=== PATIENT | female | born 1975 | race Caucasian/White ===

== ENCOUNTER 2021-04-24 10:59 | Outpatient (CLI) | payer OTHER ==
--- NOTE | 2021-04-30 08:04 | Mammography Report ---
BILATERAL DIGITAL SCREENING MAMMOGRAM 3D/2D: 04/24/2021 CLINICAL: Routine screening. Comparison is made to exams dated: 04/06/2011 mammogram - [facility], 09/01/2010 mammogram, and 11/21/2009 mammogram - [facility]. The tissue of both breasts is heterogeneously de nse. This may lower the sensitivity of mammography. There are benign calcifications in both breasts. No significant masses, calcifications, or other findings are seen in either breast. There has been no significant interval change. IMPRESSION: BENIGN There is no mammographic evidence of malignancy. A 1 year screening mammogram is recommended. This exam was interpreted at Station ID: [id number]. NOTE: For mammograms, a report in lay terms will be sent to the patient. Approximately 15% of breast malignancies will not be visualized mammographically. In the management of a palpable breast mass, a negative mammogram must not discourage biopsy of a clinically suspicious lesion. Electronically Signed By: Lázaro delarosa/penrad:04/29/2021 08:05:03 ACR BI-RADS Category 2: Benign Finding(s) 3342F PARENCHYMAL PATTERN: (D) - The breast(s) demonstrate(s) heterogeneously dense fibroglandular parenchy ma. BI-RADS CATEGORY: (2) - 2 RECOMMENDATION: (ANNUAL) - Recommend routine annual screening mammography. [id number] 1 year screening LATERALITY: (B)
== END 2021-04-24 11:00 | disposition home or self-care (01) ==
LOC: DI 10:59 → MERGE 11:30
DX: Z12.31 Encounter for screening mammogram for malignant neoplasm of breast (principal)

== ENCOUNTER 2021-09-19 07:00 | Outpatient (CLI) | payer OTHER | END 2021-09-19 23:59 | disposition home or self-care (01) | LOC: LAB.WCP 07:00 | PROVIDERS: ATTEND Physician Assistant Medical | DX: J06.9 Acute upper respiratory infection, unspecified (principal); Z20.822 Contact with and (suspected) exposure to COVID-19 ==

== ENCOUNTER → 2022-08-19 | Outpatient (CLI) | payer OTHER ==
--- NOTE | 2022-08-19 17:20 | XRAY Report ---
PROCEDURE: Finger(s) LT INDICATIONS: L THUMB PX TECHNIQUE: AP hand, 2 views of the first finger(s) acquired. COMPARISON: None FINDINGS: Bones: No fractures or dislocations. First interphalangeal joint osteoarthritic changes are seen wi th joint space narrowing and subchondral sclerosis. Mild first CMC joint osteoarthritic changes also noted. Small calcification over dorsal aspect of first interphalangeal joint is noted which may repre sent remote avulsion injury. No suspicious bony lesions. Soft tissues: No suspicious soft tissue calcifications. IMPRESSION: No acute left thumb fracture or dislocation. 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 Possible old avulsion injury involving dorsal aspect of first interphal angeal joint. Reviewed by: Ethan Calderon MD on 08/19/2022 5:19 PM PST Approved by: Ethan Calderon MD on 08/19/2022 5:19 PM PST Station ID: [id number]
== END ==
LOC: DI.N 07:00
PROVIDERS: ATTEND Physician Assistant
DX: M18.12 Unilateral primary osteoarthritis of first carpometacarpal joint, left hand (principal); M19.042 Primary osteoarthritis, left hand

== ENCOUNTER 2022-12-31 07:56 | Outpatient (CLI) | payer OTHER ==
--- NOTE | 2022-12-31 12:13 | Ultrasound Report ---
LIMITED ULTRASOUND OF RIGHT BREAST: 12/31/2022 CLINICAL: Focal right breast pain. Comparison is made to exams dated: 12/31/2022 mammogram, 04/24/2021 mammogram, and 04/24/2021 mammogram - [facility]. Color flow and real-time ultrasound of the right breast 7 o'clock region were performed. Brock scale images of the real-time examination were reviewed. No significant abnormalities were seen sonographically in the right breast in the region of pain. IMPRESSION: NEGATIVE There is no sonographic evidence of malignancy. Exam findings were conveyed to the patient. Patient is advised to monitor for significant change. Cli nical follow-up as needed. A 1 year screening mammogram is recommended. This exam was interpreted at Station ID: [id number]. Electronically Signed By: Lázaro Ivory M.D. slc/:12/31/2022 09:37:07 Ultrasound BI-RADS: 1 Negative BI-RADS CATEGORY: (1) - 1 Mammogram [id number] 1 year screening LATERALITY: (B)
--- NOTE | 2022-12-31 12:13 | Mammography Report ---
BILATERAL DIGITAL DIAGNOSTIC MAMMOGRAM 3D/2D: 12/31/2022 CLINICAL: Intermittent pain in bilateral breasts. Comparison is made to exams dated: 04/24/2021 mammogram, 04/24/2021 mammogram - [facility], and 04/06/2011 mammogram - [facility]. Both breasts are heterogeneously dense, which may obscure small masses (category c / 51-75% glandular tissue). Long-term stable grouped calcifications in the left breast. No significant masses, calcifications, or other findings are seen in either breast. IMPRESSION: INCOMPLETE: NEEDS ADDITIONAL IMAGING EVALUATION No mammographic evidence of malignancy. A targeted ultrasound is recommended and will immediately follow. Based on the Tyrer Cuzick model (a risk assessment model) the patients lifetime risk is 15.1% and he r 10 year risk is 2.8%. According to the ACR, ACS, and NCCN guidelines, an annual breast MRI exam gwendolyn ng with mammogram is recommended if the patients lifetime risk is 20% or greater. This exam was interpreted at Station ID: [id number]. NOTE: For mammograms, a report in lay terms will be sent to the patient. Approximately 15% of breast malignancies will not be visualized mammographically. In the management of a palpable breast mass, a negative mammogram must not discourage biopsy of a clinically suspicious lesion. Electronically Signed By: Lázaro Ivory M.D. slc/:12/31/2022 08:38:27 ACR BI-RADS Category 0: Incomplete 3340F PARENCHYMAL PATTERN: (D) - The breast(s) demonstrate(s) heterogeneously dense fibroglandular parkatherine mcintyre. BI-RADS CATEGORY: (0) - 0 Ultrasound [id number] Immediate follow-up LATERALITY: (B)
--- NOTE | 2022-12-31 12:13 | Ultrasound Report ---
LIMITED ULTRASOUND OF LEFT BREAST: 12/31/2022 CLINICAL: Focal left breast pain. Comparison is made to exams dated: 12/31/2022 ultrasound, 12/31/2022 mammogram, 04/24/2021 mammogram, a nd 04/24/2021 mammogram - [facility]. Color flow and real-time ultrasound of the left breast 3 o'clock region were performed. Brock scale i mages of the real-time examination were reviewed. There is a 1.2 cm x 0.9 cm x 0.4 cm cluster of oval cysts with a septated internal wall in the left b reast at 3 o'clock middle depth 4 cm from the nipple. This correlates to the reported pain. Color f low imaging demonstrates that there is no vascularity present. IMPRESSION: PROBABLY BENIGN The 1.2 cm cluster of oval cysts in the left breast is probably benign. A follow-up ultrasound in 6 months is recommended to demonstrate stability. Exam findings were conveyed to the patient. Patient is advised to monitor for significant change. This exam was interpreted at Station ID: [id number]. Electronically Signed By: Lázaro Ivory M.D. slc/:12/31/2022 09:53:17 Ultrasound BI-RADS: 3 Probably benign BI-RADS CATEGORY: (3) - 3 Ultrasound [id number] 6 month follow-up LATERALITY: (B)
== END 2022-12-31 07:57 | disposition home or self-care (01) ==
LOC: DI 07:56
PROVIDERS: ATTEND Physician Assistant Medical
DX: N64.4 Mastodynia (principal); N60.12 Diffuse cystic mastopathy of left breast

== ENCOUNTER 2023-02-06 08:00 | Outpatient (CLI) | payer OTHER ==
[2023-02-06 18:46] LABS: HCT - HEMATOCRIT 43.8 % (37.0-47.0); MEAN CORPUSCULAR VOLUME 93.8 fL (81.0-99.0); RED BLOOD COUNT 4.67 10^6/uL (4.20-5.40); RED CELL DISTRIBUTION WIDTH 13.4 % (12.0-15.0); WHITE BLOOD COUNT 5.3 x10^3/uL (4.8-10.8)
== END 2023-02-06 23:59 | disposition home or self-care (01) ==
LOC: LAB.N 08:00
PROVIDERS: ATTEND Physician Assistant Medical
DX: R20.2 Paresthesia of skin (principal)
CPT/HCPCS: 36415; 85027

== ENCOUNTER 2023-09-27 10:16 | Outpatient (CLI) | payer OTHER ==
--- NOTE | 2023-09-27 14:35 | Ultrasound Report ---
LIMITED ULTRASOUND OF LEFT BREAST: 09/27/2023 CLINICAL: Left 6 month follow-up of cyst cluster. Comparison is made to exams dated: 12/31/2022 ultrasound and 12/31/2022 mammogram - [facility]. Color flow ultrasound of the left breast 3 o'clock region was performed. Brock scale images of the r eal-time examination were reviewed. There is a 1.1 cm x 0.8 cm x 0.4 cm oval cluster of cysts with a septated internal wall in the left b reast at 3 o'clock middle depth 4 cm from the nipple. This finding has not significantly changed. C olor flow imaging demonstrates that there is no vascularity present. IMPRESSION: PROBABLY BENIGN The 1.1 cm x 0.8 cm x 0.4 cm cluster of cysts in the left breast is probably benign. A follow-up ultrasound in 6 months is recommended to demonstrate continued stability. Findings and recommendations were conveyed to the patient at time of exam. This exam was interpreted at Station ID: [id number]. Electronically Signed By: Clara landry/:09/27/2023 10:59:19 Ultrasound BI-RADS: 3 Probably benign BI-RADS CATEGORY: (3) - 3 Ultrasound [id number] 6 month follow-up LATERALITY: (B)
== END 2023-09-27 10:17 | disposition home or self-care (01) ==
LOC: DI 10:16
PROVIDERS: ATTEND Physician Assistant Medical
DX: R92.8 Other abnormal and inconclusive findings on diagnostic imaging of breast (principal); N60.12 Diffuse cystic mastopathy of left breast